=== PATIENT | female | born 1955 | race Caucasian/White ===

== ENCOUNTER 2016-07-09 22:10 | Observation (INO) ==
[2016-07-09 22:37] LABS: URINE SOURCE CLEAN CATCH
[2016-07-09 22:50] LABS: URINE EPITHELIAL CELLS <10 /HPF (<10)
[2016-07-09 22:51] LABS: BILIRUBIN URINE NEGATIVE (NEGATIVE); BLOOD URINE 1+ (NEGATIVE); CLARITY CLEAR (CLEAR); COLOR YELLOW; GLUCOSE URINE NEGATIVE (NEGATIVE); LEUKOCYTES URINE 1+ (NEGATIVE); NITRITE URINE NEGATIVE (NEGATIVE); PROTEIN URINE NEGATIVE (NEGATIVE); SP GRAVITY URINE 1.015; URINE CULTURE PL NEEDED? YES; UROBILINOGEN URINE NORMAL
--- NOTE | 2016-07-10 00:01 | PROVIDER DOCUMENTATION ---
HPI-Abdominal Pain/GI Problem - General Source: patient - History of Present Illness-ABD Nature of Presenting Problems: 61 YOWF PRESENTS TO ED WITH C/O PT STATES RLQ PAIN THAT STARTED AROUND NOON YESTERDAY AND HAS GOTTEN PROGRESSIVELY WORSE TONIGHT. PT DENIES ANY RADIATION. PT STATES SHE DOES HAVE NAUSEA VOMITING. Abdominal Pain Onset Location: reports: RLQ Pain Radiation: reports: no radiation Quality of Pain: reports: aching Severity in ED: reports: moderate Onset/Duration: reports: 24 hours ago Timing: reports: still present Activities at Onset: reports: light activity Modifying Factors: improves with: nothing Associated Symptoms: reports: nausea, vomiting Last BM: unsure Dark Stools Present?: reports: none noticed Rectal Bleeding: reports: none Emesis Description: reports: none Bruising or Bleeding Gums?: No Similar Symptoms Previously?: No Recently seen or treated by another doctor?: No <Reginald Boland - Last Filed: 07/10/16 02:50> <Bunny Martin - Last Filed: 07/10/16 03:51> - General Chief Complaint: Abdominal Pain Stated Complaint: abd pain Time Seen by Provider: 07/09/16 23:52 Allergies/Adverse Reactions: Patient Allergies Allergy/AdvReac Type Severity Reaction Status Date / Time omeprazole [From Prilosec] Allergy Mild RASH Verified 07/09/16 22:22 omeprazole magnesium * Allergy Mild RASH Verified 07/09/16 22:22 [From Prilosec] Home Medications: Home Medication List Medication Instructions Recorded Confirmed Last Taken Type ATORVAstatin [Lipitor] 40 mg PO DAILY 07/09/16 07/09/16 Unknown History Amlodipine Besylate 5 mg PO DAILY 07/09/16 07/09/16 Unknown History Bisoprolol Fumarate/Hctz 1 dose PO DAILY 07/09/16 07/09/16 Unknown History [Bisoprolol-Hctz 10-6.25 mg Tab] Citalopram [Celexa] 20 mg PO DAILY 07/09/16 07/09/16 Unknown History Meloxicam 15 mg PO DAILY 07/09/16 07/09/16 Unknown History Oxycodone HCl/Acetaminophen 1 dose PO Q6-8H PRN PRN 07/09/16 07/09/16 Unknown History [Percocet 5-325 mg Tablet] Review of Systems - Adult - REVIEW OF SYSTEMS - ADULT Constitutional: denies: chills, fever Eyes: reports: no symptoms reported Ears, Nose, Mouth & Throat: reports: no symptoms reported Cardiovascular: denies: chest pain, palpitations, syncope Respiratory: denies: cough, shortness of breath, wheezing Gastrointestinal: reports: abdominal pain (RLQ), nausea, vomiting. denies: diarrhea Genitourinary: reports: no symptoms reported Musculoskeletal: denies: back pain, neck pain Integumentary: reports: no symptoms reported Neurological: denies: dizziness/vertigo, headache/migraines, syncope Psychiatric: reports: no symptoms reported Endocrine: reports: no symptoms reported Hematologic/Lymphatic: reports: no symptoms reported Allergic/Immunologic: reports: no symptoms reported All Other Systems: Reviewed and Negative <Reginald Boland - Last Filed: 07/10/16 02:50> Past History - Adult - PAST MEDICAL HISTORY-ADULT Review of Records: reports: Nursing Assessment Review, Medications Reviewed Cardiovascular: reports: HTN, hyperlipidemia - PRIOR SURGERIES/PROCEDURES Surgical/Procedure History: reports: hysterectomy, , orthopedic ( extremity) - IMMUNIZATION STATUS Childhood Immunizations: See Nurse Assessment Flu Vaccine: See Nurse Assessment - FAMILY HISTORY Family History: reviewed, not pertinent - SOCIAL HISTORY Smoking: cigarettes, less than 1 pack/day Provider spent 3-5 mins advising pt. on dangers of tobacco.: Discussed manners to quit use, and f/u contacts for add'l counseling. Substance Use: denies Alcohol Use Frequency: never Living Situation: family <Reginald Boland - Last Filed: 07/10/16 02:50> Physical Exam-General - CONSTITUTIONAL General Appearance: alert, mild distress - EYES Eyes: PERRL/EOMI, pink conjunctivae - HEAD, EARS, NOSE, MOUTH & THROAT HENMT: normocephalic/atraumatic, moist mucous membranes - NECK Neck: non-tender, full range of motion, supple - RESPIRATORY Respiratory: chest non-tender, lungs clear, normal breath sounds - CARDIOVASCULAR Cardiovascular: normal peripheral pulses, regular rate, rhythm - GASTROINTESTINAL (ABDOMEN) Abdominal Exam: normal bowel sounds, soft, tenderness (RLQ) - LYMPHATIC Lymphatic: no adenopathy - MUSCULOSKELETAL Back Exam: normal inspection, no CVA tenderness, no vertebral tenderness Extremity: normal range of motion, non-tender - SKIN Integumentary: normal color, normal turgor, warm/dry - NEUROLOGIC Neurologic: grossly normal - PSYCHIATRIC Psych/Mental Status: oriented x 3 <Reginald Boland - Last Filed: 07/10/16 02:50> Progress - PLAN OF CARE/RESULTS Progress/Plan/Lab Results: Laboratory Tests 07/09/16 07/09/16 07/09/16 00:01 00:01 22:25 WBC 9.13 RBC 3.93 L Hgb 11.5 L Hct 35.3 L MCV 89.8 MCH 29.3 MCHC 32.6 L RDW Std Deviation 14.9 H Plt Count 233 MPV 10.6 H Immature Gran % (Auto) 0.2 Neut % (Auto) 55.6 Lymph % (Auto) 33.7 [place] % (Auto) 7.6 Eos % (Auto) 2.6 Baso % (Auto) 0.3 Immature Gran # (Auto) 0.02 Neut # (Auto) 5.07 Lymph # (Auto) 3.08 [place] # (Auto) 0.69 H Eos # (Auto) 0.24 Baso # (Auto) 0.03 Sodium 140 Potassium 3.8 Chloride 103 Carbon Dioxide 26 Anion Gap 11 BUN 17 Creatinine 0.7 Estimated GFR/1.73 m2 > 60 BUN/Creatinine Ratio 24 Glucose 107 H Calculated Osmolality 281 Calcium 8.9 Total Bilirubin 0.20 AST 12 ALT 13 Alkaline Phosphatase 99 Total Protein 6.5 Albumin 3.9 Globulin 3.0 Albumin/Globulin Ratio 2.0 Amylase 25 Lipase 15 Urine Source CLEAN CATCH Urine Color YELLOW Urine Clarity CLEAR Urine pH 6.0 Ur Specific [place] 1.015 Urine Protein NEGATIVE Urine Ketones NEGATIVE Urine Blood 1+ A Urine Nitrite NEGATIVE Urine Bilirubin NEGATIVE Urine Urobilinogen NORMAL Urine Microscopic RBC 10-20 A Urine WBC 1+ A Urine Microscopic WBC 10-20 A Ur Epithelial Cells <10 Urine Bacteria 1+ Urine Glucose NEGATIVE Orders Category Date Time Status Saline Loc DIRECTED Care 07/09/16 23:53 Active NPO Diet 07/09/16 23:[address] ABD/PELVIS W/ IV CONT ONLY [CT] Stat Exams 07/09/16 23:55 Ordered AMYLASE [CHEM] Stat Lab 07/09/16 00:01 Completed CBC WITH ELECTRONIC DIFF [HEME] Stat Lab 07/09/16 00:01 Completed COMPREHENSIVE METABOLIC PANEL [CHEM] Stat Lab 07/09/16 00:01 Completed LIPASE [CHEM] Stat Lab 07/09/16 00:[address] W/POSS RFLX CULT [URINALYSIS] Stat Lab 07/09/16 22:25 Completed URINE CULTURE [RM] Routine Lab 07/09/16 22:51 Ordered Vital Signs - 24 hr 07/09/16 22:19 Temperature 97.7 F Pulse Rate 69 Respiratory 16 Rate Blood Pressure 146/65 O2 Sat by Pulse 99 Oximetry - CT/MRI 1 CT Study: Abdomen, Pelvis CT Results: SMALL IDETERMINATE NODULES IN BOTH ADRENAL GLANDS. <Reginald Boland - Last Filed: 07/10/16 02:50> Departure <Reginald Boland - Last Filed: 07/10/16 02:50> - Departure Time of Disposition Order: 03:40 Certified Medical Emergency: Emergent <Bunny Martin - Last Filed: 07/10/16 03:51> - Departure DIAGNOSIS: Adrenal mass Disposition: ADMITTED INPATIENT 09 Condition: Stable Attestation - Scribe Verification/Attestation Scribe:: Reginald Boland Acting as Scribe for:: Bunny Martin Scribe documention review:: This chart was documented by a scribe and accurately reflects the service the provider performed and the decisions made by the provider. <Reginald Boland - Last Filed: 07/10/16 02:50> Physician Attestation
[2016-07-10 00:10] LABS: MANUAL DIFF NEEDED? NO
[2016-07-10 00:21] LABS: BASO% 0.3 % (0.0-0.8); EOS# 0.24 X1000 (0.0-0.7); EOS% 2.6 % (0.0-10.0); HEMATOCRIT 35.3 % (37.0-47.0); HEMOGLOBIN 11.5 g/dL (12.0-16.0); IMM GRAN# 0.02 X1000 (0.0-0.04); IMM GRAN% 0.2 % (0.0-0.5); LYMPH# 3.08 X1000 (1.2-3.4); LYMPH% 33.7 % (20.5-51.1); MCH 29.3 PG (27-31); MCHC 32.6 g/dL (33-37); MCV 89.8 FL (81-99); MONO# 0.69 X1000 (0.11-0.59); MONO% 7.6 % (1.7-9.3); MPV 10.6 FL (7.4-10.4); NEUT% 55.6 % (42.2-75.2); PLT 233 X1000 (130-400); RBC 3.93 XMIL (4.2-5.4)
[2016-07-10 00:32] LABS: AGAP 11; ALBUMIN 3.9 g/dL (3.5-5.0); ALKALINE PHOSPHATASE 99 U/L (32-104); AMYLASE 25 U/L (20-200); BUN 17 mg/dL (8-22); CALCIUM 8.9 mg/dL (8.8-10.2); CHLORIDE 103 mmol/L (98-107); COSMO 281; GOT 12 U/L (10-30); GPT 13 U/L (10-36); LIPASE 15 U/L (13-60); POTASSIUM 3.8 mmol/L (3.5-5.1); SODIUM 140 mmol/L (136-145); TCO2 26 mmol/L (25-35); TOTAL PROTEIN 6.5 g/dL (6.3-8.3)
[2016-07-10] MEDS ORDERED: TYLENOL PO PRN (03:30)
[2016-07-10] MEDS ORDERED: NS 1,000 ML IV SCH (03:30)
[2016-07-10] MEDS ORDERED: ZOFRAN IV PRN (03:30)
[2016-07-10] MEDS ORDERED: MORPHINE IV PRN ×2 (03:30→03:33)
[2016-07-10] MEDS ORDERED: ROCEPHIN 1 GM/NS 50 ML IV ONE (03:32)
[2016-07-10 12:06] VITALS: BP 151/64
--- NOTE | 2016-07-10 12:13 | Diag Imaging Result Document ---
PROCEDURE NAME: CT ABD/PELVIS W/ IV CONT ONLY - 07/09/2016 CT OF THE ABDOMEN AND PELVIS WITH IV CONTRAST: FINDINGS: Exam performed with intravenous contrast only per request of the referring provider. A dose reduction protocol was used. Compared to 05/04/2015. The visualized lung bases appear clear except for mild dependent atelectasis. There is a 1 cm low density lesion compatible with cyst in the left lobe of the liver, which is stable. There are no acute abnormalities of the liver or spleen identified. There is mild lobulated enlargement of bilateral adrenal glands which is stable and may relate to small adenomas or hyperplasia. The pancreas is somewhat atrophic similar to the previous exam. There is no pancreatic mass or inflammation identified. There are no calcified gallstones or pericholecystic inflammation identified. The common bile duct is mildly prominent but this is stable. The bilateral kidneys enhance homogeneously. There is no hydronephrosis. There is no evidence of bowel obstruction. The appendix does not appear inflamed. There is colonic diverticulosis which is most extensive at the sigmoid and distal descending colon. There is no evidence of diverticulitis. There is no abscess identified. There is no free air. There is no substantial free fluid. Images of the pelvis show postsurgical changes of partial hysterectomy. There is no abnormal pelvic mass or fluid collection identified. There are lumbar spine degenerative changes noted, most conspicuous at lumbar facets. IMPRESSION: 1. Stable exam compared to 05/04/2015. Somewhat prominent common bile duct, no etiology for which is apparent. No calcified gallstones. No visible pancreatic mass or inflammation. 2. Stable mild bilateral adrenal enlargement which may relate to small adenomas or hyperplasia. 3. Colonic diverticulosis. No evidence of diverticulitis. 4. No bowel obstruction. Unremarkable appendix. A [employer]s physician provided preliminary results at 2:24 a.m. on 07/10/2016. [facility]Angle
--- NOTE | 2016-07-10 13:33 | Diag Imaging Result Document ---
PROCEDURE NAME: MRI ABDOMEN W/WO CONTRAST - 07/10/2016 MRI ABDOMEN WITHOUT AND WITH INTRAVENOUS CONTRAST: COMPARISON: 07/10/2016, 05/04/2015. FINDINGS: The exam is somewhat limited by patient motion artifact. There are stable, small bilateral adrenal nodules which have not changed since at least 05/04/2015. No other mass or adenopathy. No abnormal fluid collections. Other organs are normal. IMPRESSION: Small benign-appearing bilateral adrenal nodules suggesting adenomas.
--- NOTE | 2016-07-10 19:46 | HISTORY AND PHYSICAL ---
PRIMARY CARE PHYSICIAN: Daniel Barroso D.O. CHIEF COMPLAINT: Right lower quadrant abdominal pain that began around 12 noon yesterday and progressively worsened with nausea and vomiting. HISTORY OF PRESENTING ILLNESS: This is a 61-year-old, female who presented to [facility] ER with complaints of right lower quadrant abdominal pain that had progressively worsened with nausea and vomiting that began around 12 noon yesterday. Workup in the ER showed on her abdomen and pelvic CT that it was a stable examination compared to 05/04/2015, no visible pancreatic mass or inflammation, stable mild bilateral adrenal enlargement which may relate to small adenomas or hyperplasia, no bowel obstruction, no evidence of diverticulitis. MRI of the abdomen showed small benign appearing bilateral adrenal nodules suggesting adenomyosis. So she was admitted for further evaluation and treatment. PAST MEDICAL HISTORY: Hypertension and hyperlipidemia. PAST SURGICAL HISTORY: Hysterectomy, and orthopedic surgery. FAMILY HISTORY: Noncontributory. SOCIAL HISTORY: She currently lives with family. Denies any tobacco, alcohol, or illicit drug use. ALLERGIES: Omeprazole. HOME MEDICATIONS: Lipitor 40 mg p.o. daily, amlodipine 5 mg p.o. daily, bisoprolol with hydrochlorothiazide 10/6.25 p.o. daily, Celexa 20 mg p.o. daily, Meloxicam 15 mg p.o. daily, Percocet 5 one p.o. q.6-8 hours p.r.n. LABORATORY DATA: Showed a white blood cell count of 9.13, hemoglobin of 11.5, hematocrit 35.3, platelets 233,000. Sodium 140, potassium 3.8, chloride 103, CO2 26, BUN 17, creatinine 0.7, glucose 107, amylase 25, lipase 15, AST 12, ALT 13, alkaline phosphatase 99. Urinalysis with negative nitrites, 1+ white blood cells, 1+ bacteria. Abdomen and pelvic CT showed stable examination compared to 05/04/2015. No calcified gallstones, no visible pancreatic mass or inflammation, stable mild bilateral adrenal enlargement which may relate to small adenomas or hyperplasia, no evidence of diverticulitis, no bowel obstruction. Abdomen MRI showed small benign appearing bilateral adrenal nodules suggesting adenomas. REVIEW OF SYSTEMS: She denied any fever, chills, blurry vision, dizziness, chest pain, coughing, shortness of breath. She was positive for right lower quadrant abdominal pain, nausea and vomiting. Denied constipation or diarrhea, burning or hurting with urination. PHYSICAL EXAMINATION: VITAL SIGNS: Temp 98.3 degrees, pulse 67, respirations 16, blood pressure 151/64, saturating 100% on room air. GENERAL: This is a 61-year-old, female, who is lying in bed and answers questions appropriately. HEENT: Normocephalic and atraumatic. Pupils are equal, round, and reactive to light. Extraocular movements are intact. Oropharynx and nares are clear. NECK: Supple. LUNGS: Clear to auscultation bilaterally with equal lung expansion and chest wall movement. HEART: Regular rate and rhythm. No murmurs, rubs, or gallops. ABDOMEN: Soft, nontender, nondistended. Bowel sounds are present x4 quadrants. EXTREMITIES: There is no clubbing, cyanosis, or edema. NEUROLOGICAL: Cranial nerves 2-12 are grossly intact. ASSESSMENT: 1. Right lower quadrant abdominal pain. 2. Nausea and vomiting. 3. Hypertension. PLAN: She was admitted to the medical unit at [facility]. Placed on healthy heart diet. Normal saline at 125 mL an hour. She was given morphine 2 mg IV q.2 hours p.r.n., Zofran 4 mg IV q.4 hours p.r.n., Rocephin 1 gram IV q.24 hours. Dictated by SIDNEY Woodall for Grady Dominguez MD
[2016-07-11] MEDS ORDERED: ROCEPHIN 1 GM/NS 50 ML IV SCH (03:00)
--- NOTE | 2016-07-11 09:48 | DISCHARGE SUMMARY ---
ADMISSION DATE: 07/09/2016 DISCHARGE DATE: 07/10/2016 PRIMARY CARE PHYSICIAN: Dr. Daniel Barroso. ADMISSION DIAGNOSES: 1. Right lower quadrant abdominal pain. 2. Nausea and vomiting. 3. Hypertension. DISCHARGE DIAGNOSES: 1. Right lower quadrant abdominal pain. 2. Nausea and vomiting. 3. Hypertension. SUMMARY OF FINDINGS: This is a 61-year-old female who presented to the ER with complaints of right lower quadrant pain with nausea, vomiting, that had progressively worsened since [address] of the abdomen and pelvis and MRI were essentially benign. It did show a small benign appearing bilateral adrenal nodules suggesting adenomas. No other mass or adenopathy. No fluid collections. No diverticulitis. No small bowel obstruction. The patient has remained afebrile since arriving. Her white blood cell count is within normal limits. Her urinalysis showed negative nitrites, 1+ bacteria with 1+ white blood cells. She denies any burning or hurting with urination. So, it is felt that she can safely be discharged home today. DISCHARGE MEDICATIONS: She will continue her home medications of 1. Lipitor 40 mg p.o. daily. 2. Amlodipine 5 mg p.o. daily. 3. Bisoprolol/hydrochlorothiazide 10/6.25 p.o. daily. 4. Celexa 20 mg p.o. daily. 5. Meloxicam 15 mg p.o. daily. 6. Percocet 5 one p.o. q.6-8 hours p.r.n. FOLLOWUP: She will need to follow up with her primary care physician in the next 1-2 weeks. DISCHARGE INSTRUCTIONS: All discharge instructions were reviewed with the patient and she verbalized understanding. Time spent on discharge: 30 minutes. Dictated by SIDNEY Woodall for Grady Dominguez MD
== END 2016-07-10 16:00 | disposition home or self-care (01) ==
LOC: P.ED 22:10 → INTOOBSV 22:11 → P.MEDSURG 22:11
PROVIDERS: ATTEND Family Medicine
DX: R10.31 Right lower quadrant pain (principal); E27.8 Other specified disorders of adrenal gland; I10 Essential (primary) hypertension; R11.2 Nausea with vomiting, unspecified; E78.5 Hyperlipidemia, unspecified; Z79.1 Long term (current) use of non-steroidal anti-inflammatories (NSAID); Z79.899 Other long term (current) drug therapy; F17.210 Nicotine dependence, cigarettes, uncomplicated; Z71.6 Tobacco abuse counseling
CPT/HCPCS: 74177; 74183; 80053; 81001; 82150; 83690; 85025; 87088; 94761; 96365; 96375; A9579; G0378; J0696; J2270; J7030; Q9967